=== PATIENT | female | born 1955 | race Caucasian/White ===

== ENCOUNTER 2023-01-03 04:06 | Emergency (ER) | payer MEDICARE, MEDICAID ==
[~2023-01-03] VITALS: Ht 160 cm; Wt 64.0 kg
[2023-01-03 04:08] VITALS: BP 171/93; PULSE 104; RESP 16; O2SAT 98
== END 2023-01-03 04:55 | disposition left against medical advice (07) ==
LOC: ER 04:06
DX: R53.1 Weakness (principal); Z86.73 Personal history of transient ischemic attack (TIA), and cerebral infarction without residual deficits
CPT/HCPCS: 99283